=== PATIENT | female | born 2000 | race Caucasian/White ===

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

== ENCOUNTER 2022-01-26 11:15 | Emergency (ER) | payer OTHER, SELFPAY ==
--- NOTE | ~2022-01-26 | XR_ITS ---
EXAMINATION: XR ankle LT min 3V DATE: 01/26/2022 11:42 INDICATION: Left ankle pain TECHNIQUE: Anteroposterior, lateral, mortise, and additional oblique view of the ankle were obtained. COMPARISON: None. FINDINGS: Bone alignment is normal. There is no fracture or osteochondral lesion. Ankle soft tissue s welling is noted. IMPRESSION: 1. No acute osseous abnormality. Reviewed, dictated and finalized at location B.
[2022-01-26 11:22] VITALS: BP 137/76; PULSE 95; RESP 20; TEMP 37.3; O2SAT 100
[2022-01-26 11:31] VITALS: BP 137/76; PULSE 95; RESP 20; TEMP 37.3; O2SAT 100
--- NOTE | 2022-01-26 11:38 | ED.LOWEXIN ---
HPI - Extremity Injury (Lower) General Chief Complaint: Extremity Injury, Lower Stated Complaint: Left Ankle Injury Time Seen by Provider: 01/26/22 11:18 Source: patient and RN notes reviewed History of Present Illness HPI Narrative: Patient is a 21-year-old female who presents the urgent care with her mother with complaints of left ankle pain and swelling. Patient states that she fell out of her back door today while trying to run out and do errands. Patient ambulated to the facility with the use of crutches. Patient has not done anything for her pain prior to arrival. States that happened approximately 1 hour ago. No other acute complaints. No acute distress noted. Patient and mother aware of the plan of care. Some parts of this dictation were generated by voice recognition software and may contain typographical and/or grammatical inaccuracies. Related Data Home Medications Medication Instructions Recorded Confirmed escitalopram oxalate 10 mg tablet 10 mg PO DAILY 01/26/22 01/26/22 hydroxyzine HCl 25 mg tablet 1 tablet PO BID 01/26/22 01/26/22 norgestimate-ethinyl estradiol 1 tablet PO DAILY 01/26/22 01/26/22 0.18 mg/0.215mg/0.25mg-35 mcg(28)tablet (Tri-Sprintec (28)) prazosin 1 mg capsule 2 mg PO HS 01/26/22 01/26/22 Allergies Allergy/AdvReac Type Severity Reaction Status Date / Time No Known Allergies Allergy Verified 01/26/22 11:29 Review of Systems Review of Systems: CONSTITUTIONAL: Denies fever, chills, or sweats. EYES: Denies visual changes, redness, or discharge. ENT: Denies rhinorrhea, congestion, sore throat, or otalgia. CARDIOVASCULAR: Denies chest pain, palpitations, or edema. RESPIRATORY: Denies cough or dyspnea. GASTROINTESTINAL: Denies abdominal pain, nausea, vomiting, or diarrhea. GENITOURINARY: Denies dysuria or hematuria. SKIN: Denies rash or itching. MUSCULOSKELETAL: Reports of left ankle pain and swelling NEUROLOGIC: Denies headache, numbness, or weakness. All other systems reviewed are negative, except as documented in HPI. [facility] Past Medical History Medical History (Updated 01/26/22 @ 12:02 by EDUARD Maradiaga) Seizures Comments At the time of my signature, I reviewed and agree with the nursing past medical, surgical, social, and family history. There is no relevant family history pertinent to the patient complaint. Exam Narrative: GENERAL: This is a well-nourished, well-developed patient, in no apparent distress. HEAD: normocephalic, atraumatic. EYES: PERRL. Sclera clear/white. Vision is grossly intact. EARS: External ears normal NOSE: External nose normal with no obvious nasal discharge, nares without redness, no rhinorrhea. THROAT: Mucous membranes moist NECK: Neck supple CARDIOVASCULAR: Regular rate and rhythm without murmurs, gallops, or rubs. RESPIRATORY: Clear to auscultation. Breath sounds equal bilaterally. No wheezes, rales, or rhonchi. SKIN: warm, intact with no suspicious lesions or rash, good texture and turgor. NEURO: awake, alert, and oriented to person, place and time. There were no obvious focal neurologic abnormalities. EXTREMITIES: Mild edema noted to the lateral aspect of the left malleolus with moderate tenderness. Positive strong left pedal pulse with capillary refill less than 2 seconds. Range of motion not tested due to pain and swelling. Course Course Level of Care: Express Care Visit Vital Signs Vital signs: Vital Signs Temperature 99.2 F 01/26/22 11:22 Pulse Rate 95 01/26/22 11:22 Respiratory Rate 20 01/26/22 11:22 Blood Pressure 137/76 01/26/22 11:22 Pulse Oximetry 100 01/26/22 11:22 Oxygen Delivery Room Air 01/26/22 11:22 Temperature 99.2 F 01/26/22 11:31 Pulse Rate 95 01/26/22 11:31 Respiratory Rate 20 01/26/22 11:31 Blood Pressure 137/76 01/26/22 11:31 Pulse Oximetry 100 01/26/22 11:31 Oxygen Delivery Room Air 01/26/22 11:31 Reviewed MDM - Extremity Injury (Lower) MDM Narrative
== END 2022-01-26 12:07 | disposition home or self-care (01) ==
PROVIDERS: Emergency Provider Nurse Practitioner Family
DX: S93.402A Sprain of unspecified ligament of left ankle, initial encounter (principal); S96.912A Strain of unspecified muscle and tendon at ankle and foot level, left foot, initial encounter; W13.8XXA Fall from, out of or through other building or structure, initial encounter
CPT/HCPCS: 73610; 99213; G0463

== ENCOUNTER 2024-05-09 17:52 | Emergency (ER) | payer OTHER, SELFPAY ==
--- NOTE | ~2024-05-09 | XR_ITS ---
XR foot LT min 3V Ordering provider: Ivon Gutiérrez APRN History: . L leg pain . Comparison: None. FINDINGS: BONES: No acute fracture or dislocation. JOINT SPACES: Normal. No tarsal coalition. SOFT TISSUES: Normal. IMPRESSION: No acute osseous abnormality left foot. Reviewed, dictated and finalized at location A.
--- NOTE | ~2024-05-09 | XR_ITS ---
XR tibia fibula LT 2V Ordering provider: Ivon Gutiérrez APRN History: . L leg pain . Comparison: None. FINDINGS: BONES: No acute fracture or dislocation. JOINT SPACES: Normal. SOFT TISSUES: Normal. IMPRESSION: No acute osseous abnormality left leg. Reviewed, dictated and finalized at location A.
--- NOTE | ~2024-05-09 | XR_ITS ---
XR ankle LT 2V Ordering provider: Ivon Gutiérrez APRN History: . L leg pain . Comparison: None. FINDINGS: BONES: No acute fracture or dislocation. JOINT SPACES: The ankle mortise is normal. SOFT TISSUES: Soft tissue swelling over the lateral malleolus. IMPRESSION: No acute osseous abnormality left ankle. Reviewed, dictated and finalized at location A.
[2024-05-09 17:56] VITALS: BP 146/94; PULSE 109; RESP 16; TEMP 36.6; O2SAT 100
--- NOTE | 2024-05-09 19:04 | ED.LOWEXIN ---
HPI - Extremity Injury (Lower) General Chief Complaint: Extremity Injury, Lower Stated Complaint: Left ankle injury fell in a hole Time Seen by Provider: 05/09/24 18:14 History of Present Illness HPI Narrative: Patient is a 23-year-old female who presents to the ER with left lower extremity pain. She reports she was at home playing fetch with her dog outside when she stepped in a hole. Patient reports her body turned but her ankle did not. She reports she fell on her right side, but has no pain in that area. Patient reports she has significant pain in that left ankle and has very limited movement. She also endorses swelling and some mild ecchymosis. Patient reports she has no medical history that is pertinent to this ER visit. She denies chest pain, shortness a breath, other signs symptoms of illness. Related Data Allergies Allergy/AdvReac Type Severity Reaction Status Date / Time No Known Allergies Allergy Verified 05/09/24 17:59 Review of Systems Review of Systems: All systems reviewed & are unremarkable except as noted in HPI and below PMFSH Past Medical History Medical History Seizures as baby none since Family History Family History Other Acute myocardial infarction maternal grandparents Multiple sclerosis paternal aunt Mother Endometriosis hysterectomy age 33 Grandparent Breast cancer maternal grandmother H/O ovarian cancer, Onset Age: 86 paternal grandmother Social History Social History Smoking status: Never smoker Alcohol intake: current Alcohol use details: 3 times a year Substance use: never Substance use type: does not use Living arrangements: other Additional living arrangements comments: single Occupation/Education: student Gender identity (if verbalized by the patient): Female Sexual Orientation (if Verbalized by the Patient): Straight or Heterosexual Exam Narrative: GENERAL: Well appearing, well-nourished, non-toxic, in no acute distress. HEAD: Normocephalic, atraumatic. NECK: Supple. No adenopathy, no masses. RESPIRATORY: Airway patent, respirations nonlabored. Clear to auscultation bilaterally, no rales, rhonchi, wheezing. CARDIOVASCULAR: Regular rate and rhythm without murmurs, rubs, or gallops. Peripheral pulses 2+ and equal bilaterally. ABDOMINAL: Soft, nontender, nondistended, no hepatosplenomegaly. Normoactive BS. MUSCULOSKELETAL: Moves all extremities. Left lower extremity is mildly swollen and has mild ecchymosis. SKIN: Warm, dry, normal color. No rashes. NEURO: A&O X3. Speech clear. Cranial nerves II-XII grossly intact. Steady gait. No ataxic movements. PSYCHIATRIC: Appropriate mood and affect. Normal interaction. Course Vital Signs Vital signs: Vital Signs Temperature 36.6 C 05/09/24 17:56 Pulse Rate 109 H 05/09/24 17:56 Respiratory Rate 16 05/09/24 17:56 Blood Pressure 146/94 H 05/09/24 17:56 Pulse Oximetry 100 05/09/24 17:56 Oxygen Delivery Room Air 05/09/24 17:56 Temperature 36.6 C 05/09/24 17:56 Pulse Rate 109 H 05/09/24 17:56 Respiratory Rate 16 05/09/24 17:56 Blood Pressure 146/94 H 05/09/24 17:56 Pulse Oximetry 100 05/09/24 17:56 Oxygen Delivery Room Air 05/09/24 17:56 MDM - Extremity Injury (Lower) MDM Narrative Medical decision making narrative: Patient is a 23-year-old female who presents to the ER with left lower extremity pain. She reports she was at home playing fetch with her dog outside when she stepped in a hole. Patient reports her body turned but her ankle did not. She reports she fell on her right side, but has no pain in that area. Patient reports she has significant pain in that left ankle and has very limited movement. She also endorses swelling and
[2024-05-09] MEDS: HYDROcodone/acetaminophen (*CRX) 5-325 MG TABLET 1 TAB PO ×2 (19:17→22:09)
[2024-05-09 21:53] VITALS: BP 142/92; PULSE 94; RESP 20; TEMP 36.7; O2SAT 99
== END 2024-05-09 22:25 | disposition home or self-care (01) ==
PROVIDERS: Emergency Provider Registered Nurse
DX: S93.402A Sprain of unspecified ligament of left ankle, initial encounter (principal); W18.39XA Other fall on same level, initial encounter
CPT/HCPCS: 73590; 73600; 73630; 99284; A9270